=== PATIENT | female | born 1945 | race Caucasian/White ===

== ENCOUNTER → 2016-06-09 | Outpatient (CLI) | payer MEDICARE, BC ==
[~2016-06-09] MED LIST: ALDACTONE25 MG PO; ASPIRIN325 MG PO; CALCIUM 600 +1 EAC7 PO; CORICIDIN HBP1 EAC1 PO; LIPITOR40 MG PO; PROLIA SUB-Q; PROTONIX40 MG PO; PROZAC20 MG PO; VITAMIN D-32000 UNI1 PO
== END | disposition disaster alternative care site (69) ==
LOC: GRAD 06-06 10:30
DX: K76.9 Liver disease, unspecified (principal); K76.89 Other specified diseases of liver; N26.1 Atrophy of kidney (terminal)

== ENCOUNTER → 2016-06-24 | Outpatient (CLI) | payer MEDICARE, BC | END | disposition disaster alternative care site (69) | LOC: GBCOE 07:55 | DX: Z13.820 Encounter for screening for osteoporosis (principal); Z78.0 Asymptomatic menopausal state; M85.89 Other specified disorders of bone density and structure, multiple sites; E55.9 Vitamin D deficiency, unspecified ==